=== PATIENT | female | born 1960 | race African-American/Black ===

== ENCOUNTER 2020-12-26 21:31 | Emergency (ER) | payer OTHER ==
[~2020-12-26] VITALS: Ht 170.2 cm; Wt 72.6 kg
[~2020-12-26 21:31] MED LIST: PEPCID20 MG PO
[2020-12-26 22:07] LABS: HEMATOCRIT 35.3 % (37.0-47.0); HEMOGLOBIN 11.5 gm/dL (12.0-15.0); MCH 32.6 pg (26.0-34.0); MCHC 32.6 g/dL (28.0-37.0); PLATELET COUNT 250 thou/uL (150-400); RBC 3.53 mil/uL (4.20-5.00); RDW 13.3 % (10.5-14.5); WBC 10.2 thou/uL (4.0-11.0)
[2020-12-26 22:12] LABS: ANION GAP 14 mmol/L (7-16); BUN 20 mg/dL (7-18); CALCIUM 9.3 mg/dL (8.5-10.1); CHLORIDE 105 mmol/L (98-107); CO2 23 mmol/L (21-32); CREATININE 1.3 mg/dL (0.6-1.0); GLUCOSE 161 mg/dL (74-106); POTASSIUM 3.8 mmol/L (3.5-5.1); SODIUM 142 mmol/L (136-145)
[2020-12-26 22:20] LABS: TROPONIN-I <0.06 ng/mL (<0.06)
[2020-12-26 23:05] LABS: ABSOLUTE NEUTROPHILS 5.3 thou/uL (1.4-8.2); ATYPICAL LYMPHS 1 %
[2020-12-27 00:08] VITALS: BP 148/71
--- NOTE | 2020-12-27 07:46 | EKG ---
[address] [address] ELECTROCARDIOGRAM REPORT Name: NAYELY LARSON Room #: [facility]#: [id number] Admission: 12/26/20 Attend Phys: Discharge: 12/27/20 Date of : 62 Report #: [id number] [facility] ED Test Date: 2020-12-26 Test Time: 21:39:28 Pat Name: NAYELY LARSON Department: Room: Gender: F Guidance Counselor: JCHAIRADHA : 1960 Requested By: Quinn Velazquez Order Number: [id number] MD: Jose Hernandez Measurements Intervals [place] Rate: 108 P: 72 SC: 164 QRS: 4 QRSD: 90 T: 41 QT: 363 QTc: 487 Interpretive Statements Sinus tachycardia Atrial premature complex Abnormal R-wave progression, early transition Borderline prolonged QT interval Compared to ECG 01/25/2020 10:19:21 Atrial premature complex(es) now present Sinus rhythm no longer present Electronically Signed On 12-27-2020 7:46:17 CDT by Jose Hernandez [email or web address] <ELECTRONICALLY SIGNED> By: Jose Hernandez MD, [facility] 12/27/20 0746 [id number] 38 Jose Hernandez MD, [facility] /EPI
== END 2020-12-27 00:11 | disposition home or self-care (01) ==
LOC: ER 21:31
PROVIDERS: Nurse Practitioner
DX: R07.89 Other chest pain (principal); R42 Dizziness and giddiness; R00.2 Palpitations; I10 Essential (primary) hypertension; F17.210 Nicotine dependence, cigarettes, uncomplicated; Z79.899 Other long term (current) drug therapy

== ENCOUNTER 2021-04-28 10:20 | Emergency (ER) | payer OTHER ==
[~2021-04-28] VITALS: Ht 170.2 cm; Wt 70.3 kg
[2021-04-28 10:20] VITALS: BP 185/90
[2021-04-28] MEDS ORDERED: ZESTRIL10 MG PO ×2 (10:22)
[2021-04-28] MEDS ORDERED: LISINOPRIL10 MG PO (10:22)
[2021-04-28] MEDS ORDERED: NORVASC5 MG PO (10:58)
== END 2021-04-28 11:12 | disposition home or self-care (01) ==
LOC: ER 10:20
PROVIDERS: Student in an Organized Health Care Education/Training Program
DX: I10 Essential (primary) hypertension (principal); Z20.822 Contact with and (suspected) exposure to COVID-19; F17.210 Nicotine dependence, cigarettes, uncomplicated; Z79.899 Other long term (current) drug therapy

== ENCOUNTER 2021-04-29 11:10 | Emergency (ER) | payer OTHER ==
[~2021-04-29] VITALS: Ht 170.2 cm; Wt 65.3 kg
[~2021-04-29 11:10] MED LIST changes: +LISINOPRIL10 MG PO; +NORVASC5 MG PO; +ZESTRIL10 MG PO
[2021-04-29 12:12] LABS: HEMOGLOBIN 12.3 gm/dL (12.0-15.0); MCH 31.9 pg (26.0-34.0); MCHC 32.2 g/dL (28.0-37.0); MCV 98.8 fL (80.0-100.0); RBC 3.85 mil/uL (4.20-5.00); RDW 13.2 % (10.5-14.5); WBC 5.8 thou/uL (4.0-11.0)
[2021-04-29 12:20] LABS: CALCIUM 9.8 mg/dL (8.5-10.1); CREATININE 0.7 mg/dL (0.6-1.0)
[2021-04-29 12:31] LABS: ALBUMIN 3.7 g/dL (3.4-5.0); TOTAL BILIRUBIN 0.3 mg/dL (0.2-1.0)
[2021-04-29 12:50] LABS: URINE BILIRUBIN NEGATIVE (Negative); URINE BLOOD NEGATIVE (Negative); URINE CLARITY CLEAR; URINE COLOR YELLOW; URINE GLUCOSE-RANDOM* NEGATIVE (Negative); URINE KETONES NEGATIVE (Negative); URINE LEUKOCYTES-REFLEX NEGATIVE (Negative); URINE NITRITE-REFLEX NEGATIVE (Negative); URINE PROTEIN (DIPSTICK) NEGATIVE (Negative); URINE UROBILINOGEN 0.2 E.U./dl (0.2-1.0)
[2021-04-29 13:25] VITALS: BP 143/89
--- NOTE | 2021-04-30 11:36 | EKG ---
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 : 1960 Requested By: Magalie Solorio Order Number: [id number] MD: Taqueria Latham Measurements Intervals [place] Rate: 76 P: 68 TN: 156 QRS: 39 QRSD: 97 T: 18 QT: 383 QTc: 431 Interpretive Statements Sinus rhythm Abnormal R-wave progression, early transition Nonspecific ST segment abnormalities compared to ECG 12/26/2020 21:39:28 No significant change Electronically Signed On 04-30-2021 11:36:40 CDT by Taqueria Latham [email or web address] <ELECTRONICALLY SIGNED> By: Taqueria Latham MD 04/30/21 1136 1144 1144 MD TEMI Arenas
== END 2021-04-29 13:27 | disposition home or self-care (01) ==
LOC: ER 11:10
PROVIDERS: Nurse Practitioner Family
DX: I10 Essential (primary) hypertension (principal); F17.210 Nicotine dependence, cigarettes, uncomplicated; Z79.899 Other long term (current) drug therapy

== ENCOUNTER 2021-05-01 22:37 | Emergency (ER) | payer OTHER ==
[~2021-05-01] VITALS: Ht 170.2 cm; Wt 71.2 kg
[2021-05-01 23:25] LABS: BASOPHILS 0.9 % (0.0-2.0); EOSINOPHILS 1.3 % (0.0-3.0); HEMATOCRIT 37.7 % (37.0-47.0); HEMOGLOBIN 12.4 gm/dL (12.0-15.0); LYMPHOCYTES 31.5 % (24.0-44.0); MCH 32.1 pg (26.0-34.0); MCHC 32.7 g/dL (28.0-37.0); MONOCYTES 8.9 % (1.0-8.0); PLATELET COUNT 233 thou/uL (150-400); POLYS 57.4 % (36.0-66.0); RBC 3.85 mil/uL (4.20-5.00); RDW 13.3 % (10.5-14.5); WBC 8.8 thou/uL (4.0-11.0)
[2021-05-01 23:35] LABS: CREATININE 0.8 mg/dL (0.6-1.0); POTASSIUM 3.5 mmol/L (3.5-5.1)
[2021-05-02 00:48] VITALS: BP 158/83
--- NOTE | 2021-05-02 16:17 | EKG ---
[place] [address] [facility] [employer] [address] ELECTROCARDIOGRAM REPORT Name: NAYELY LARSON Room #: [facility]#: [id number] Admission: 05/01/21 Attend Phys: Discharge: 05/02/21 Date of : 62 Report #: [id number] [facility] ED Test Date: 2021-05-02 Test Time: 00:08:14 Pat Name: NAYELY LARSON Department: Room: Gender: F Corn [place]: SENG : 1960 Requested By: Stoney Driscoll Order Number: [id number] MD: Boone Jensen Measurements Intervals [place] Rate: 62 P: 63 PA: 162 QRS: 23 QRSD: 108 T: 2 QT: 400 QTc: 407 Interpretive Statements Sinus rhythm Atrial premature complex Early R wave progression Baseline wander in lead(s) V1 Compared to ECG 04/29/2021 11:44:33 Atrial premature complex(es) now present Electronically Signed On 05-02-2021 16:17:30 CDT by Boone Jensen [email or web address] <ELECTRONICALLY SIGNED> By: Boone Jensen MD, [facility] 05/02/21 1617 Boone Jensen MD, [facility] /EPI
== END 2021-05-02 00:48 | disposition home or self-care (01) ==
LOC: ER 22:37
PROVIDERS: Emergency Medicine
DX: I10 Essential (primary) hypertension (principal); R07.89 Other chest pain; F17.210 Nicotine dependence, cigarettes, uncomplicated; Z79.899 Other long term (current) drug therapy

== ENCOUNTER 2021-05-03 10:08 | Emergency (ER) | payer OTHER ==
[~2021-05-03] VITALS: Ht 170.2 cm; Wt 71.2 kg
[2021-05-03 10:53] VITALS: BP 122/72
--- NOTE | 2021-05-04 09:21 | EKG ---
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: annie : 1960 Requested By: Gualberto Parks Order Number: [id number] MD: Jose Hernandez Measurements Intervals [place] Rate: 89 P: 79 CA: 142 QRS: 66 QRSD: 98 T: 26 QT: 369 QTc: 449 Interpretive Statements Sinus rhythm Left atrial enlargement RSR' in V1 or V2, right VCD or RVH Compared to ECG 05/02/2021 00:08:14 Atrial abnormality now present Right ventricular hypertrophy now present RSR' in V1 or V2 now present Atrial premature complex(es) no longer present Poor R-wave progression no longer present Electronically Signed On 05-04-2021 9:21:20 CDT by Jose Hernandez [email or web address] <ELECTRONICALLY SIGNED> By: Jose Hernandez MD, [facility] 05/04/21 0921 1018 1018 Jose Hernandez MD, FAC /EPI
== END 2021-05-03 10:53 | disposition home or self-care (01) ==
LOC: ER 10:08
DX: F41.9 Anxiety disorder, unspecified (principal); I10 Essential (primary) hypertension; F17.210 Nicotine dependence, cigarettes, uncomplicated; Z79.899 Other long term (current) drug therapy

== ENCOUNTER 2021-06-01 11:13 | Emergency (ER) | payer OTHER ==
[~2021-06-01] VITALS: Ht 170.2 cm; Wt 68.0 kg
--- NOTE | ~2021-06-01 | EKG ---
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
[2021-06-01 12:13] LABS: ABSOLUTE NEUTROPHILS 3.9 thou/uL (1.4-8.2); BASOPHILS 0.4 % (0.0-2.0); EOSINOPHILS 0.5 % (0.0-3.0); HEMOGLOBIN 12.4 gm/dL (12.0-15.0); LYMPHOCYTES 25.9 % (24.0-44.0); MCH 32.2 pg (26.0-34.0); MCHC 32.7 g/dL (28.0-37.0); MCV 98.5 fL (80.0-100.0); MONOCYTES 8.6 % (1.0-8.0); PLATELET COUNT 210 thou/uL (150-400); POLYS 64.6 % (36.0-66.0); RBC 3.86 mil/uL (4.20-5.00); RDW 12.9 % (10.5-14.5); WBC 6.1 thou/uL (4.0-11.0)
[2021-06-01 12:46] LABS: ALBUMIN 3.9 g/dL (3.4-5.0); DIRECT BILIRUBIN < 0.1 mg/dL (<0.1-0.2); LIPASE 76 U/L (73-393); SGOT 14 U/L (15-37); SGPT 11 U/L (14-59); TOTAL BILIRUBIN 0.3 mg/dL (0.2-1.0); TOTAL PROTEIN 7.2 g/dL (6.4-8.2)
[2021-06-01 12:50] LABS: CREATININE 0.8 mg/dL (0.6-1.0); POTASSIUM 4.1 mmol/L (3.5-5.1)
[2021-06-01 12:55] LABS: CALCIUM 10.1 mg/dL (8.5-10.1)
[2021-06-01] MEDS ORDERED: PROTONIX40 MG PO (13:59)
[2021-06-01 14:17] VITALS: BP 130/76
--- NOTE | 2021-06-02 07:22 | EKG ---
[place] [address] [facility] [employer] [place] [address] ELECTROCARDIOGRAM REPORT Name: NAYELY LARSON Room #: [facility]#: [id number] Admission: 06/01/21 Attend Phys: Discharge: 06/01/21 Date of : 62 Report #: [id number] [facility] ED Test Date: 2021-06-01 Test Time: 11:22:08 Pat Name: NAYELY LARSON Department: Room: Gender: F Flaker Tender: YOVANY : 1960 Requested By: Rajendra Dunham Order Number: [id number] MD: Jose Hernandez Measurements Intervals [place] Rate: 91 P: 75 [place]: 144 QRS: 64 QRSD: 102 T: 9 QT: 378 QTc: 466 Interpretive Statements Sinus rhythm Biatrial enlargement Compared to ECG 05/03/2021 10:18:23 Right ventricular hypertrophy no longer present Electronically Signed On 06-02-2021 7:22:39 CDT by Jose Hernandez [email or web address] <ELECTRONICALLY SIGNED> By: Jose Hernandez MD, [facility] 06/02/21 07 1122 1122 Jose Hernandez MD, [facility]ACC /EPI
== END 2021-06-01 14:18 | disposition home or self-care (01) ==
LOC: ER 11:13
PROVIDERS: Emergency Medicine
DX: K21.9 Gastro-esophageal reflux disease without esophagitis (principal); I10 Essential (primary) hypertension; F17.210 Nicotine dependence, cigarettes, uncomplicated; Z79.899 Other long term (current) drug therapy